=== PATIENT | female | born 1985 | race Caucasian/White ===

== ENCOUNTER → 2017-07-20 | Outpatient (CLI) | payer OTHER ==
--- NOTE | 2017-07-20 13:34 | MR ---
EXAMINATION TYPE: MR lumbar spine wo con DATE OF EXAM: 07/20/2017 COMPARISON: NONE HISTORY: Radiculopathy Lumbar Region TECHNIQUE: Multiplanar, multisequence images of the lumbar spine were acquired. L1-L2: Normal disc appearance without desiccation. No herniation, protrusion or disc bulging. No ca nal stenosis is present. Foramina are patent bilaterally. L2-L3: Normal disc appearance without desiccation. No herniation, protrusion or disc bulging. No ca nal stenosis is present. Foramina are patent bilaterally. L3-L4: Mild facet arthropathy with fragility ligamentum flavum is noted. No significant central steno sis or foraminal encroachment. No evident disc herniation. L4-L5: Broad-based posterior disc bulge causes minimal anterior mass effect on the thecal sac, no sig nificant central stenosis or foraminal encroachment. Mild facet arthropathy. L5-S1: Normal disc appearance without desiccation. No herniation, protrusion or disc bulging. No ca nal stenosis is present. Foramina are patent bilaterally. Lumbar segments are intact. No paraspinal masses are identified. Conus medullaris has a normal appe arance. There is a scoliotic curvature present. IMPRESSION: Scoliosis
== END | disposition home or self-care (01) ==
LOC: RADMRIMAIN 12:20
PROVIDERS: ATTEND Physical Medicine & Rehabilitation
DX: M41.9 Scoliosis, unspecified (principal)
CPT/HCPCS: 72148

== ENCOUNTER → 2020-07-18 | Outpatient (CLI) | payer OTHER ==
--- NOTE | 2020-07-19 12:42 | MM ---
Reason for exam: clinical finding. Baseline mammogram. History: Family history of breast cancer in maternal grandmother at age 70. Retro-pectoral silicone gel implants in both breasts, 2017. Took hormonal contraceptives for 11 years beginning at age 17. Physical Findings: Nurse Summary: nodule in the right breast at 11 o'clock (nurse ms). MG 3D Diag Mammo Imp W/Cad ART Bilateral CC, MLO, and ID view(s) were taken. The breast tissue is extremely dense which could obscure a lesion on mammography. These results were verbally communicated with the patient and result sheet given to the patient on 07/18/20. ASSESSMENT: Incomplete: need additional imaging evaluation, BI-RAD 0 RECOMMENDATION: Ultrasound of the right breast. (palpable)
--- NOTE | 2020-07-19 12:45 | USB ---
Reason for exam: additional evaluation requested from abnormal screening. History: Family history of breast cancer in maternal grandmother at age 70. Retro-pectoral silicone gel implants in both breasts, 2017. Took hormonal contraceptives for 11 years beginning at age 17. US Breast Limited RT Right limited breast ultrasound including focal area of concern, retroareolar and axilla demonstrates a 9 x 6 x 8mm oval, solid, hypoechoic lesion at 10 o'clock BB, suspicious. Ultrasound guided biopsy right breast nodule. These results were verbally communicated with the patient and result sheet given to the patient on 07/18/20. ASSESSMENT: Suspicious, BI-RAD 4 RECOMMENDATION: Ultrasound core biopsy of the right breast. Called Dr. Schneider's office with mammographic findings and has scheduled an appointment for the patient for 07/25/20 at 12:[address] Mcdermott. Biopsy scheduled for 08/08/20 at 10:30. PRELIMINARY REPORT CALLED AND FAXED TO DR. MCDERMOTT ON 07/19/20.
== END | disposition home or self-care (01) ==
LOC: RADMAMWWP 13:52
PROVIDERS: ATTEND Obstetrics & Gynecology
DX: N63.10 Unspecified lump in the right breast, unspecified quadrant (principal); Z80.3 Family history of malignant neoplasm of breast
CPT/HCPCS: 77062; 77066

== ENCOUNTER → 2020-07-25 | Outpatient (CLI) | payer OTHER ==
[2020-07-25 12:09] VITALS: BP 117/79; PULSE 69; RESP 16; TEMP 98.3
--- NOTE | 2020-07-25 12:51 | P.GSHP ---
History of Present Illness H&P Date: 07/25/20 Chief Complaint: Nodule right breast Radha is a 35-year-old white female who noted a nodule in her right breast approximately 2-1/2 weeks ago. She underwent a bilateral mammogram on 6320 and she was noted to have extremely dense breast tissue. An ultrasound was recommended and on the same date and ultrasound of the right breast was performed. This revealed a 9 x 8 mm solid hypoechoic lesion at 10:00 for which biopsy was recommended. She has not noted any other lumps masses or nodules in either breast. It is not complaining of any nipple discharge or skin changes. She has had bilateral subpectoral implants placed 4 years ago. These were silicone implants. She has had no problems with the implants. She is not complaining of any pain. She has not had any other breast surgery other than the implants. Caffeine: drinks "spark" this is a caffeinated vitamin drink and she drinks 2 a day Nicotine: Negative Chocolate: twice a week Family history: maternal grandmother: breast cancer, dx at 72 maternal grandfather: prostate cancer Paternal grandfather: Prostate and colon cancer Maternal great aunt: Bladder cancer Paternal aunt: Pancreatic cancer Paternal uncle: colon lung cancer, smoker Hormonal History: menarche: 10 , breast fed: yes; first born at 21 periods regular BCP: IUD Mirena progesterone is in this implant BCP: 10 years intermittent Surgical History: breast implants lasix eye surgery Medical History: hypothyroid asthma scoliosis Social History: nicotine: none, second hand smoke as a child alcohol: occasional drugs: none - Constitutional Constitutional: Reports sweats - EENT Comment: lasix eye surgery Eyes: denies blurred vision, denies pain Ears: deny: decreased hearing, tinnitus Ears, nose, mouth and throat: Reports headache, Denies sore throat - Breasts Breasts: bilateral: as per HPI - Cardiovascular Cardiovascular: Denies chest pain, Denies shortness of breath - Respiratory Respiratory: Denies cough, Denies 7 - Gastrointestinal Gastrointestinal: Denies abdominal pain, Denies diarrhea, Denies nausea, Denies vomiting - Genitourinary (Female) Genitourinary: Denies dysuria, Denies hematuria - Menstruation Menstruation: Reports period normal - Musculoskeletal Musculoskeletal: Denies myalgias - Integumentary Integumentary: Denies pruritus, Denies rash - Neurological Neurological: Denies numbness, Denies weakness - Psychiatric Psychiatric: Denies anxiety, Denies depression - Endocrine Endocrine: Denies fatigue, Denies weight change - Hematologic/Lymphatic Comment: none - Allergic/Immunologic Allergic/Immunologic: Reports as per HPI Past Medical History History of Any Multi-Drug Resistant Organisms: None Reported Smoking Status: Never smoker Medications and Allergies Home Medications Medication Instructions Recorded Confirmed Type Biotin 5,000 mcg PO DAILY 07/25/20 07/25/20 History Cholecalciferol [Vitamin D3 (25 25 mcg PO DAILY 07/25/20 07/25/20 History Mcg = 1000 Iu)] Levothyroxine Sodium [Synthroid] 125 mcg PO DAILY 07/25/20 07/25/20 History Montelukast Sodium [Singulair] 10 mg PO HS 07/25/20 07/25/20 History Allergies Allergy/AdvReac Type Severity Reaction Status Date / Time nitrofurantoin Allergy Anaphylaxis Verified 07/25/20 12:04 [From Macrobid] sulfamethoxazole Allergy Anaphylaxis Verified 07/25/20 12:04 Surgical - Exam Vital Signs Temp Pulse Resp BP Pulse Ox 98.3 F 69 16 117/79 100 07/25/20 12:06 07/25/20 12:06 07/25/20 12:06 07/25/20 12:06 07/25/20 12:06 BMI 23 - General well developed, well nourished, no distress - Eyes normal ocular movement - ENT no hearing loss, no congestion - Neck no masses, trachea midline - Respiratory wheezing left lung base normal expansion, normal respiratory effort, clear to auscultation - Cardiovascular Rhythm: regular Heart Sounds: normal: S1, S2 - Abdomen Abdomen: soft - Integumentary normal turgor - Neurologic no disoriented, no combative - Musculoskeletal normal gait - Psychiatric oriented to time, oriented to person, oriented to place, speech is normal, memory intact Breast exam: BRA: 34D inspection: Bilateral breast implants Palpation: Right breast: Multi-positional exam fibrocystic changes, implant in place, there is an area of nodularity at the 10 o'clock position which is approximately 8 mm in size it is firm but appears to be freely mobile from the implant Right axilla: No adenopathy of concern Left breast: Multi-positional exam fibrocystic changes, implant in place, no do minant masses or nodules of concern Left axilla: No adenopathy of concern Results Mammogram and ultrasound personally reviewed with Dr. Landis from radiology Assessment and Plan Assessment: Impression: hypothyroid asthma scoliosis Palpable mass right breast 10 o'clock position Abnormal right breast ultrasound Plan: 1. Sampling of nodule right breast recommended, ultrasound-guided core biopsy versus resection and the operating room was discussed with the patient. Secondary to risk of the implant she has opted for removal in the operating room. Risk of procedure could still include injury to the implant but it is felt after review with radiology that this would be less than with an ultrasound core biopsy. The patient understands of the implant were to be ruptured intraoperatively it would be removed during the inframammary incision to which it was placed. She also understands that there is no plastic surgeon on standby at this place and that she would postoperatively be recommended to follow up with the plastic surgeon. Risks and benefits of the procedure discussed with the patient. She understands and wishes to proceed. CC: Magaly Root
== END ==
LOC: WWCWWP 11:56
PROVIDERS: ATTEND Surgery
DX: R92.8 Other abnormal and inconclusive findings on diagnostic imaging of breast (principal); N63.11 Unspecified lump in the right breast, upper outer quadrant; E03.9 Hypothyroidism, unspecified; J45.909 Unspecified asthma, uncomplicated; M41.9 Scoliosis, unspecified; Z88.1 Allergy status to other antibiotic agents; Z88.2 Allergy status to sulfonamides

== ENCOUNTER 2020-08-20 13:39 | Day surgery (SDC) | payer OTHER ==
[2020-08-15 12:10] VITALS: BMI 23.0
[~2020-08-20 13:39] MED LIST: HEPARIN SODIUM,PORCINE/PF 5,000 UNIT/0.5 ML SYRINGE SQ PRN
[2020-08-20] MEDS ORDERED: SCOPOLAMINE 1.5MG/72HR PATCH TRANSDERM ONE (14:00)
[2020-08-20] MEDS ORDERED: LACTATED RINGERS 1,000 ML IV ONE ×2 (14:01→16:01)
[2020-08-20] MEDS ORDERED: DEXAMETHASONE SOD PHOSPHATE 4 MG/ML 1 ML VIAL IVP ONE (14:04)
[2020-08-20] MEDS ORDERED: ONDANSETRON 4 MG/2 ML VIAL IVP ONE (14:05)
[2020-08-20] MEDS ORDERED: ePHEDrine SULFATE/0.9% NACL/PF 50 MG/5 ML SYRINGE IV ONE (15:41)
[2020-08-20] MEDS ORDERED: LIDOCAINE 1% INJ 10MG/ML (20 ML MDV) ONE (15:41)
[2020-08-20] MEDS ORDERED: MIDAZOLAM 2 MG/2 ML VIAL ONE (15:41)
[2020-08-20] MEDS ORDERED: fentaNYL (PF) 50 MCG/ML 2 ML AMP ONE (15:41)
[2020-08-20] MEDS ORDERED: PROPOFOL 10 MG/ML 20 ML VIAL IV ONE (15:41)
--- NOTE | 2020-08-20 16:39 | P.DS ---
Providers Attending physician: Kayla Mcdermott Primary care physician: Rogelio Mckenzie Plan - Discharge Summary Discharge Rx Participant: Yes New Discharge Prescriptions: No Action Montelukast Sodium [Singulair] 10 mg PO HS Cholecalciferol [Vitamin D3 (25 Mcg = 1000 Iu)] 25 mcg PO DAILY Levothyroxine Sodium [Synthroid] 125 mcg PO DAILY Biotin 5,000 mcg PO DAILY Discharge Medication List Biotin 5,000 mcg PO DAILY 07/25/20 [History] Cholecalciferol [Vitamin D3 (25 Mcg = 1000 Iu)] 25 mcg PO DAILY 07/25/20 [History] Levothyroxine Sodium [Synthroid] 125 mcg PO DAILY 07/25/20 [History] Montelukast Sodium [Singulair] 10 mg PO HS 07/25/20 [History] Follow up Appointment(s)/Referral(s): Kayla Mcdermott MD [STAFF PHYSICIAN] - 08/29/20 8:40 am Patient Instructions/Handouts: *Surgery [facility] - (Anesthesia) Discharge Instructions Outpatient Surgery, *Surgery [facility] - Scopalamine Patch Instructions Activity/Diet/Wound Care/Special Instructions: Do not drive for 24 hours from discharge May shower after 48 hours Were bra until seen by Dr. Henson
--- NOTE | 2020-08-20 16:39 | P.OP ---
Date of Procedure: 08/20/20 Preoperative Diagnosis: Palpable mass right breast on area of implant Postoperative Diagnosis: Same Procedure(s) Performed: Excision palpable mass right breast Anesthesia: MARE Surgeon: Kayla Mcdermott Estimated Blood Loss (ml): 2 IV fluids (ml): 800 Pathology: other (Nodule from right breast) Condition: stable Disposition: same day Indications for Procedure: Palpable mass right breast directly under the implant patient wishes this removed in the operating room secondary to risk of rupture of the implant with core biopsy Operative Findings: Nodule right breast 9 to 10 o'clock position Description of Procedure: The patient was taken to the operating room and following induction of anesthesia the right breast was prepped and draped in a sterile fashion. The area of palpable abnormality was at the 9:30 to 10 o'clock position. Incision was made over this and dissection was carried down underneath the pectoralis muscle to an area of approximately 1 cm x 1 cm palpable abnormality. This was excised from off the implants. The implant was not entered. Hemostasis was attained using electrocautery device. The deep tissues were closed using 3-0 Vicryl suture. The skin was closed using 4-0 Monocryl. Steri-Strips were applied. The specimen was sent to pathology. Patient tolerated procedure in stable condition. Clips were not placed. The dissection was closely adherent to the implant and should this be anything of concern we will be able to easily locate the site which was just operated on.
[2020-08-20 16:57] VITALS: TEMP 98.6
[2020-08-20 17:01] VITALS: RESP 16
[2020-08-20] MEDS ORDERED: HYDROmorphone 0.5 MG/0.5 ML SYRINGE IVP ONE (17:26)
[2020-08-20 18:04] VITALS: BP 125/78; PULSE 71
== END 2020-08-20 18:22 | disposition home or self-care (01) ==
LOC: OR 13:39
PROVIDERS: ATTEND Surgery
DX: D24.1 Benign neoplasm of right breast (principal); M41.9 Scoliosis, unspecified; J45.909 Unspecified asthma, uncomplicated; E07.9 Disorder of thyroid, unspecified; Z79.890 Hormone replacement therapy; Z80.3 Family history of malignant neoplasm of breast; Z80.52 Family history of malignant neoplasm of bladder; Z80.1 Family history of malignant neoplasm of trachea, bronchus and lung; Z80.8 Family history of malignant neoplasm of other organs or systems
CPT/HCPCS: 19120; 81025; 88305; J2250; J1100; J0690; J2405; J2001; J3010; J2704; J1170; J1644

== ENCOUNTER → 2020-08-29 | Outpatient (CLI) | payer OTHER ==
--- NOTE | 2020-08-29 09:03 | P.PN ---
Progress Note - Text Progress Note Date: 08/29/20 Radha is a 35-year-old white female status post right breast biopsy on 7620. Pathology revealed a fibroadenoma. She tolerated the procedure without difficulty. Physical exam: Lungs: Clear Heart: S1-S2 Incision: Clean and dry Impression: Right breast fibroadenoma Plan: Repeat right breast mammogram and ultrasound in 6 months with physician exam at that time CC: Dr. Mckenzie
[2020-08-29 09:14] VITALS: BP 134/85; PULSE 72; RESP 12; TEMP 98.3
== END ==
LOC: WWCWWP 08:38
PROVIDERS: ATTEND Surgery
DX: D24.1 Benign neoplasm of right breast (principal); Z88.2 Allergy status to sulfonamides; Z88.1 Allergy status to other antibiotic agents

== ENCOUNTER → 2022-10-01 | Outpatient (CLI) | payer OTHER, BC ==
--- NOTE | 2022-10-02 10:23 | MM ---
Reason for Exam: Screening (asymptomatic). Last mammogram was performed 1 year(s) and 5 month(s) ago. Patient History: Menarche at age 10. First Full-Term at age 21. Hormonal Contraceptives for 11 years from age 17 until age 28. 2017, Bilateral Implants. Maternal grandmother had breast cancer, age 70. Risk Values: Nelda 5 year model risk: 0.4%. NCI Lifetime model risk: 10.0%. Prior Study Comparison: 07/18/2020 Bilateral Diagnostic Mammogram, [facility]. Tissue Density: The breast tissue is extremely dense which could obscure a lesion on mammography. Findings: Analyzed By CAD. Stable benign considerations are seen bilaterally. No suspicious clusters evident. Bilateral breast implants are intact. Overall Assessment: Benign, BI-RAD 2 Management: Screening Mammogram of both breasts in 1 year. . Patient should continue monthly self-breast exams. A clinical breast exam by your physician is recommended on an annual basis. This exam should not preclude additional follow-up of suspicious palpable abnormalities. Note on Nelda scores and lifetime risk: 1. A Nelda score greater than 3% is considered moderate risk. If this is the case, consider specialist referral to assess eligibility for a risk reducing agent. 2. If overall lifetime risk for the development of breast cancer is 20% or higher, the patient may qualify for future screening with alternating mammogram and breast MRI. Electronically signed and approved by: Jim Saenz M.D. Radiologis
== END | disposition home or self-care (01) ==
LOC: RADMAMWWP 08:14
PROVIDERS: ATTEND Obstetrics & Gynecology
DX: Z12.31 Encounter for screening mammogram for malignant neoplasm of breast (principal); Z80.3 Family history of malignant neoplasm of breast
CPT/HCPCS: 77063; 77067

== ENCOUNTER → 2024-04-18 | Outpatient (CLI) | payer BC ==
--- NOTE | 2024-04-18 18:08 | MM ---
Reason for Exam: Screening (asymptomatic). Last mammogram was performed 1 year(s) and 7 month(s) ago. Patient History: Menarche at age 10. First Full-Term at age 21. Hormonal Contraceptives for 11 years from age 17 until age 28. 2017, Bilateral Implants. Maternal grandmother had breast cancer, age 70. Last menstrual period: 04/06/2024 Risk Values: Nelda 5 year model risk: 0.5%. NCI Lifetime model risk: 9.9%. Prior Study Comparison: 07/18/2020 Bilateral Diagnostic Mammogram, [facility]. 05/01/2021 Bilateral Screening Mammogram, [facility]. 10/01/2022 Bilateral MG 3D screening mammo w/cad, [facility]. Tissue Density: The breasts are extremely dense, which lowers the sensitivity of mammography. Findings: Analyzed By CAD. Demonstrating bilateral retropectoral silicone implants. There is no suspicious group of microcalcifications or new suspicious mass in either breast. Overall Assessment: Benign, BI-RAD 2 Management: Screening Mammogram of both breasts in 1 year. Given the patient's family dense breast tissue, consideration can be given to supplementary screening with breast ultrasound. Patient should continue monthly self-breast exams. A clinical breast exam by your physician is recommended on an annual basis. This exam should not preclude additional follow-up of suspicious palpable abnormalities. Note on Nelda scores and lifetime risk: 1. A Nelda score greater than 3% is considered moderate risk. If this is the case, consider specialist referral to assess eligibility for a risk reducing agent. 2. If overall lifetime risk for the development of breast cancer is 20% or higher, the patient may qualify for future screening with alternating mammogram and breast MRI. [facility], , 04/18/2024 6:05 PM. Electronically signed and approved by: Gwen Grier M.D. Radiologist
== END | disposition home or self-care (01) ==
LOC: RADMAMWWP 13:53
PROVIDERS: ATTEND Obstetrics & Gynecology
DX: Z12.31 Encounter for screening mammogram for malignant neoplasm of breast (principal); R92.343 Mammographic extreme density, bilateral breasts; Z98.82 Breast implant status; Z80.3 Family history of malignant neoplasm of breast; Z92.0 Personal history of contraception
CPT/HCPCS: 77063; 77067

== ENCOUNTER → 2024-08-24 | Outpatient (CLI) | payer BC ==
--- NOTE | 2024-08-25 11:30 | MR ---
EXAMINATION TYPE: MR pelvis wo/w con DATE OF EXAM: 08/24/2024 COMPARISON: None CLINICAL INDICATION:Female, 39 years old with history of N36.1; [facility], TECHNIQUE: Triplane multisequence imaging was performed of the pelvis. Then the patient was given c ontrast/gadolinium, 6 cc of Gadobutrol and multiple post contrast sequences where obtained. FINDINGS: Reproductive: Vagina: Unremarkable. Uterus: The uterus is anteverted in position. Uterus measures 8.3 x 4.2 x 6.4 cm. The endometrium is normal thickness measuring 4 mm. The junctional zone is mildly prominent measuring up to 9 mm. Multi ple nabothian cysts are seen in the lower uterine segment. Ovaries: Follicular changes are noted to the ovaries. Peritoneum: There is a 1.0 cm well-circumscribed nonenhancing T2 hyperintense cystic lesion within th e midline posterior to the external urethral meatus and inferior to the pubic symphysis. Bladder: Underdistended, limiting evaluation. Bowel: No evidence of bowel obstruction. Large amount of stool is present within the right colon. Peritoneum: A small amount of free fluid in the pelvis. No evidence of adenopathy. Vasculature: Unremarkable. Abdominal wall/soft tissues: Unremarkable. Musculoskeletal: Bone marrow signal is within normal signal intensity. IMPRESSION: Nonenhancing 1 cm cystic lesion posterior to the external urethral meatus. Consistent with a skene du ct cyst. [facility], , 08/25/2024 11:27 AM [facility], , 08/25/2024 11:28 AM
== END | disposition home or self-care (01) ==
LOC: RADMRIMAIN 20:30
PROVIDERS: ATTEND Urology
DX: N36.1 Urethral diverticulum (principal)
CPT/HCPCS: 72197; A9585